=== PATIENT | female | born 1985 | race Asian ===

== ENCOUNTER 2023-01-09 09:15 | Outpatient (AMB) | payer OTHER, SELFPAY ==
[2023-01-09 10:12] VITALS: BP 100/70; PULSE 86; TEMP 36.7; O2SAT 94; BMI 23.4
--- NOTE | 2023-01-09 10:12 | MHC.OFFWIV ---
Intake Vital Signs 01/09/23 10:12 Height 5 ft Weight 120 lb BMI 23.4 BP 100/70 Blood Pressure Location Lt brachial Position Sitting Pulse 86 Pulse Source Pulse Oximeter Temp 98.1 F Temp Source Oral Pulse Oximetry (%) 94 Oxygen Delivery Method Room Air Intake Visit Reasons: EP, rash all over body Intake Note: Pt is here today c/o rash all over body and face started yesterday Allergies No Known Allergies Allergy (Unverified 01/09/23 10:13) Do you need a note to return to daycare/school/sports/work: No HPI EP, rash all over body HPI Details Patient is a 37-year-old female comes to the walk-in clinic complaining of itchy rash on face, scalp, trunk and upper extremities. She relates that her symptoms started on the foot immediately after a temporary tattoo being placed there. She denies trouble swallowing, tingling or numbness to her tongue, wheezing, trouble eating, weakness or dizziness, nausea or vomiting, myalgias, or other systemic associated symptoms. Reviewed past medical history, which does not appear to be pertinent. Review of Systems Const All systems reviewed & are unremarkable except as noted in HPI and below Physical Exam Vital Signs: Last Vital Signs Temp 98.1 F 01/09/23 10:12 Pulse 86 01/09/23 10:12 BP 100/70 01/09/23 10:12 Pulse Ox 94 01/09/23 10:12 Oxygen Delivery Method Room Air 01/09/23 10:12 BMI result Body Mass Index 23.4 Const General: cooperative, healthy appearing, comfortable, no acute distress, alert, awake, Physically active and well groomed; No anxious, diaphoretic, ill appearing, intoxicated appearing, poor hygiene or tired appearing Nutritional Appearance: average body habitus Limitations: no limitations HEENT Head: Yes normal to inspection, Yes normocephalic and Yes atraumatic Face and sinus: Yes normal facial exam, Yes sinuses nontender and Yes face symmetric Mouth: Normal oral and palatal mucosa present, lip normal and tongue normal Throat: Yes posterior oropharynx normal, No peritonsillar mass, No postnasal drainage, No uvular edema and No cobblestoning Eyes General: appearance normal, both eyes and all related structures Neck Neck: Yes normal visual inspection, Yes no lymphadenopathy, Yes trachea midline, Yes supple and No anterior neck swelling Resp Effort & Inspection: normal respiratory effort, able to speak in complete sentences, no audible wheezes, no cough, no grunting, not labored, no nasal flaring, no retractions and symmetric chest movement Auscultation: clear to auscultation bilaterally, no crackles, no rales, no rhonchi, no wheezes, lung sounds not diminished and No rub present Cardio Rate: regular rate Skin Other: Scattered maculopapular pruritic areas as described. Good color, warm and dry otherwise Psych Appearance: grossly normal Mental Status: mental status grossly normal Speech and movement: Normal speech and movement present Affect: normal affect Attitude: cooperative Thought process: Normal thought process present Insight: Good insight present (Psych) Judgement: Good judgement present (Psych) Assessment & Plan Assessment & Plan (1) Dermatitis: Code(s): L30.9 - Dermatitis, unspecified Plan: Patient with pruritic dermatitis rash on face, scalp, trunk and upper extremities. Likely due to adhesive from a children's temporary tattoo as symptoms started on the foot immediately after that it was placed. She denies trouble swallowing, tingling or numbness to her tongue, wheezing, trouble eating, weakness or dizziness, nausea or vomiting, myalgias, or other systemic associated symptoms of anaphylaxis. She knows to follow up emergently if any worrisome symptoms develop, or to return to the walk-in or PCP if rash persists or reoccurs. Medications: New prednisone then take 3 tabs for 3 days, then 2 tabs for 3 days, then 1 tab for 3 days. 40 mg (4 x 10 mg) PO DAILY 30 tabs 0RF 3 days Coding Level of Care Code New Pt Level 4 (71737) Diagnoses Dermatitis L30.9
== END 2023-01-09 10:59 | disposition home or self-care (01) ==
PROVIDERS: Visit Provider Physician Assistant Medical
DX: L30.9 Dermatitis, unspecified (principal)
CPT/HCPCS: 99051; 99204